=== PATIENT | female | born 1965 | race Two or more races ===

== ENCOUNTER 2024-12-18 13:29 | Emergency (ER) | payer OTHER ==
[~2024-12-18] VITALS: Ht 157.5 cm; Wt 100.0 kg
--- NOTE | 2024-12-18 13:48 | ED.PDOC ---
History of Present Illness HPI Comments 59 year old female presents to the ED via EMS with a chief complaint of hypertension onset today. Per EMS, patient went to see PCP today, BP was elevated, Clonidine 0.2 mg was given and 911 was called. Patient states she is currently not experiencing any symptoms, is not complaint with Lisinopril due to medication causing dry cough. Upon ED arrival BP was 222/126. PMHx HTN. Denies headache, chest pain, shortness of breath, dizziness, nausea, vomiting, diarrhea. No other symptoms or modifying factors present at this time. Chief Complaint: High Blood Pressure Time Seen by MD: 13:39 Reviewed Notes: Medications, Allergies Allergies: Coded Allergies: NO KNOWN ALLERGIES (Unverified , 12/18/24) Information Source: Patient, Emergency Med Personnel Mode of Arrival: Ambulatory Severity: Moderate Timing: Hours Duration: Since onset Prehospital treatment: None Past Medical History PAST MEDICAL HISTORY: HTN Surgical History: Denies all surgeries TRANSMISSION ASSEMBLER History: No Pertinent TRANSMISSION ASSEMBLER History Family History Family History: Reviewed,noncontributory to illness, No family hx of Cancer, No family hx of DM, No family hx of Heart mary, No family hx of HTN, No family hx ofKidney mary, No family hx of Liver mary, No family hx of Lung mary, No family hx of Stroke Social History Smoker: Non-Smoker Alcohol: Denies ETOH Use Drugs: Denies Drug Use Lives In: Home Constitutional: denies: chills, diaphoresis, fatigue, fever, malaise, sweats, weakness, others EENTM: denies: blurred vision, double vision, ear bleeding, ear discharge, ear drainage, ear pain, ear ringing, eye pain, eye redness, hearing loss, mouth pain, mouth swelling, nasal discharge, nose bleeding, nose congestion, nose pain, photophobia, tearing, throat pain, throat swelling, voice changes, others Respiratory: denies: cough, hemoptysis, orthopnea, SOB at rest, shortness of breath, SOB with excertion, stridor, wheezing, others Cardiovascular: denies: chest pain, dizzy spells, diaphoresis, Dyspnea on ex ertion, edema, irregular heart beat, left arm pain, lightheadedness, palpitations, PND, syncope, others Gastrointestinal: denies: abdomen distended, abdominal pain, blood streaked bowels, constipated, diarrhea, dysphagia, difficulty swallowing, hematemesis, melena, nausea, poor appetite, poor fluid intake, rectal bleeding, rectal pain, vomiting, others Genitourinary: denies: abnormal vagina bleeding, burning, dyspareunia, dysuria, flank pain, frequency, hematuria, incontinence, pain, , vagina discharge, urgency, others Neurological: denies: dizziness, fainting, headache, left sided numbness, left sided weakness, numbness, paresthesia, pre-existing deficit, right sided numbness, right sided weakness, seizure, speech problems, tingling, tremors, weakness, others Musculoskeletal: denies: back pain, gout, joint pain, joint swelling, muscle pain, muscle stiffness, neck pain, others Integumetry: denies: bruises, change in color, change in hair/nails, dryness, laceration, lesions, lumps, rash, wounds, others Allergic/Immunocompromised: denies: Difficulty Healing, Frequent Infections, Hives, Itching, others Hematologic/Lymphatic: denies: anemia, blood clots, easy bleeding, easy bruising, swollen glands, others Endocrine: denies: excessive hunger, excessive sweating, excessive thirst, excessive urination, flushing, intolerance to cold, intolerance to heat, unexplained weight gain, unexplained weight loss, others Psychiatric: denies: anxiety, bipolar disorder, depression, hopeless, panic disorder, schizophrenia, sleepless, suicidal, others All Other Systems: Reviewed and Negative Physical Exam General Appearance: No Apparent Distress, Normal HEENT: Normal ENT Inspection, Pharynx Normal, TMs Normal Neck: Full Range of Motion, Non-Tender, Normal, Normal Inspection Respiratory: Chest Non-Tender, Lungs Clear, No Accessory Muscle Use, No Respiratory Distress, Normal Breath Sounds Cardiovascular: No Edema, No JVD, No Murmur, No Gallop, Normal Peripheral Pulses, Regular Rate/Rhythm Breast Exam: Deferred Gastrointestinal: No Organomegaly, Non Tender, No Pulsatile Mass, Normal Bowel Sounds, Soft Genitalia: Deferred Pelvic: Deferred Rectal: Deferred Extremities: No calf tenderness, Normal capillary refill, Normal inspection, Normal range of motion, Non-tender, No pedal edema Musculoskeletal : Apperance: Normal Neurologic: Alert, vet tech II-XII nml as Tested, No Motor Deficits, Normal Affect, Normal Mood, No Sensory Deficits Cerebellar Function: Normal Reflexes: Normal Skin: Dry, Normal Color, Warm Lymphatic: No Adenopathy Was a procedure done? Was a procedure done?: No Differential Dx Considerations may include: Hypertensive urgency, electrolyte [place], viral syndrome X-Ray, Labs, Meds, VS Vital Signs Date Time Temp Pulse Resp B/P (MAP) Pulse Ox O2 Delivery O2 Flow Rate FiO2 12/18/24 16:19 165/103 12/18/24 16:04 59 18 95 Room Air* 0 21 12/18/24 16:03 98.2 59 18 165/103 (123) 95 98.2 12/18/24 15:00 165/103 12/18/24 14:01 222/126 12/18/24 13:44 98.4 68 18 222/126 (158) 98 98.4 Current Medications Medications (Trade) Dose Ordered Sig/Jhon Route Start Time Stop Time Status Last Admin Clonidine HCl (Catapres Tablet) 0.1 mg ONCE ONCE PO 12/18/24 14:00 12/18/24 14:01 DC 12/18/24 14:01 Hydralazine HCl (Apresoline Injection) 10 mg ONCE ONCE IV 12/18/24 16:15 12/18/24 16:16 DC 12/18/24 16:19 Time of 1ST Reevaluation: 14:09 Reevaluation 1ST: Unchanged Patient Education/Counseling: Diagnosis, Treatment, Prognosis Family Education/Counseling: No Family Present Departure 1 Departure Time of Disposition: 16:51 (Patient presented with a asymptomatic hypertension. We will discharge patient home with outpatient follow up) Impression: Primary Impression: Hypertension Qualified Codes: I10 - Essential (primary) hypertension Disposition: 01 HOME / SELF CARE / HOMELESS Condition: Stable Additional Instructions: You should stop taking your lisinopril. You should take the new medications that your doctor prescribed view. You should follow up with the regular doctor within 1 week to ensure you are doing well. Discharged With: Self Critical Care Note Critical Care Time?: No Stability Stability form required: No I personally scribed for JALEEL COOLEY MD ([email or web address]) on 12/18/24 at 13:48. Electronically submitted by Debo Elaine ([email or web address]). I personally scribed for JALEEL COOLEY MD ([email or web address]) on 12/18/24 at 13:52. Electronically submitted by Debo Elaine ([email or web address]). JALEEL COOLEY MD Dec 18, 2024 13:48
[2024-12-18] MEDS: cloNIDine HCL 0.1 MG TAB PO ONE (14:01)
[2024-12-18 16:04] VITALS: PULSE 59; RESP 18; O2SAT 95
[2024-12-18] MEDS: hydrALAZINE HCL 20 MG/ML VL IV ONE (16:19)
[2024-12-18 16:52] VITALS: BP 138/91; PULSE 70; RESP 16; TEMP 97.9; O2SAT 95
== END 2024-12-18 17:08 | disposition home or self-care (01) ==
LOC: ER 13:29 → EDBD 13:29 → ER 17:08
DX: I10 Essential (primary) hypertension (principal)
CPT/HCPCS: 96374; 99285; J0360